=== PATIENT | female | born 1960 | race Caucasian/White ===

== ENCOUNTER 2017-03-13 05:08 | Inpatient (IN) | payer MEDICAID ==
--- NOTE | 2017-03-13 05:18 | ED PDOC ---
Arrival/HPI - General Time Seen by Provider: 03/13/17 05:14 Historian: Patient, EMS - History of Present Illness Narrative History of Present Illness (Text): 03/13/17 05:15 Nasra Mcduffie is a 57 year old female who presents to the Emergency department transferred from [facility] for depression and suicidal ideation tonight. Patient was medically cleared earlier and accepted for psychiatric admission here . Patient denies any fever, chills, chest pain, shortness of breath, nausea, vomiting, diarrhea, urinary symptoms, back pain, neck pain, headache, dizziness, or any other complaints. Symptom Onset: Gradual Symptom Course: Unchanged Activities at Onset: Light Context: Other (Transferred from [facility]) Past Medical History - Provider Review Nursing Documentation Reviewed: Yes Family/Social History - Physician Review Nursing Documentation Reviewed: Yes Family/Social History: Unknown Family HX Allergies/Home Meds Allergies/Adverse Reactions: Allergies Sulfa (Sulfonamide Antibiotics) Allergy (Verified 03/13/17 05:20) RASH Review of Systems - Physician Review All systems were reviewed & negative as marked: Yes - Review of Systems Constitutional: Normal. absent: Fevers Eyes: Normal ENT: Normal Respiratory: Normal. absent: SOB, Cough Cardiovascular: Normal. absent: Chest Pain Gastrointestinal: Normal. absent: Abdominal Pain, Diarrhea, Nausea, Vomiting Genitourinary Female: Normal. absent: Dysuria, Frequency, Hematuria, Urine Output Changes Musculoskeletal: Normal. absent: Back Pain, Neck Pain Skin: Normal. absent: Rash Neurological: Normal. absent: Headache, Dizziness Endocrine: Normal Hemo/Lymphatic: Normal Psychiatric: Depression, Suicidal Ideation Physical Exam Vital Signs Reviewed: Yes Vital Signs Temp Pulse Resp BP Pulse Ox 03/13/17 05:34 98.8 F 82 19 143/82 99 Temperature: Afebrile Blood Pressure: Normal Pulse: Regular Respiratory Rate: Normal Appearance: Positive for: Well-Appearing, Non-Toxic, Comfortable Pain Distress: None Mental Status: Positive for: Alert and Oriented X 3 - Systems Exam Head: Present: Atraumatic, Normocephalic Pupils: Present: PERRL Extroacular Muscles: Present: EOMI Conjunctiva: Present: Normal Mouth: Present: Moist Mucous Membranes Neck: Present: Normal Range of Motion Respiratory/Chest: Present: Clear to Auscultation, Good Air Exchange. No: Respiratory Distress, Accessory Muscle Use Cardiovascular: Present: Regular Rate and Rhythm, Normal S1, S2. No: Murmurs Abdomen: Present: Normal Bowel Sounds. No: Tenderness, Distention, Peritoneal Signs Back: Present: Normal Inspection Upper Extremity: Present: Normal Inspection. No: Cyanosis, Edema Lower Extremity: Present: Normal Inspection. No: Edema Neurological: Present: GCS=15, CN II-XII Intact, Speech Normal Skin: Present: Warm, Dry, Normal Color. No: Rashes Psychiatric: Present: Alert, Oriented x 3, Normal Insight, Normal Concentration Medical Decision Making ED Course and Treatment: 03/13/17 05:15 Impression: 57 year old female transferred from [facility] for depression and suicidal ideation. Plan: -- Admission to [facility] -- Disposition Progress Notes: Patient was medically cleared and accepted for psychiatric admission at previous institution by psychiatrist detonator assembler. [facility] Glez's service. Pt agreeable with plan. - Scribe Statement The provider has reviewed the documentation as recorded by the Fanny Bartlett Provider Scribe Attestation: All medical record entries made by the Scribe were at my direction and personally dictated by me. I have reviewed the chart and agree that the record accurately reflects my personal performance of the history, physical exam, medical decision making, and the department course for this patient. I have also personally directed, reviewed, and agree with the discharge instructions and disposition. Disposition/Present on Arrival - Present on Arrival Any Indicators Present on Arrival: No History of DVT/PE: No History of Uncontrolled Diabetes: No Urinary Catheter: No History of Decub. Ulcer: No History Surgical Site Infection Following: None - Disposition Have Diagnosis and Disposition been Completed?: Yes Diagnosis: Depression, Suicidal ideation Disposition: HOSPITALIZED Disposition Time: 05:40 Patient Plan: Admission Patient Problems: Current Active Problems Problem Status Onset Depression Acute Suicidal ideation Acute Condition: STABLE
[2017-03-13 05:35] VITALS: O2SAT 99
[2017-03-13] MEDS ORDERED: Magnesium Hydroxide Susp 30 ml UD PO PRN (08:03)
[2017-03-13] MEDS ORDERED: Alum-Mag Hydrox-Simethicone Susp (30 mL) PO PRN (08:03)
--- NOTE | 2017-03-13 16:17 | PCM.PSYCH ---
Initial Psychiatric Evaluation - Initial Psychiatric Evaluation Type of Admission: Voluntary Legal Status: Capacity (pt has capacity to sign consent for treatment) Chief Complaint (in patient's own words): "I was feeling very anxious, I'm very lonely, I had bad thoughts you know, I came to the hospital twice, my primary care physician was prescribing me so many medications, I did not know what to do" Patient's Reaction to Hospitalization: Patient was transferred from [facility] for evaluation and stabilization of worsening of depression, suicidal ideation, worsening of anxiety. History of Present Illness and Precipitating Events: shortly patient is 57 year old female from the [place] was transferred from [facility] where she was brought in by EMS for evaluation of worsening of depression and suicidal ideation with no intent or plan to kill herself (pt called 911 herself), worsening of anxiety for the past four days, pt was not able to contract for safety, was on multiple psychotropic medications, needs further evaluation and stabilization and meds adjustment. Pt was seen and examined today at the treatment team meeting, together with nurse clinical quality manager . pt presented with acceptable personal hygiene, acceptable ADLs. patient presented to be tearful, anxious, seems to be poor and unreliable historian, obviously has difficult to concentrate and history is lack of details. Patient reported that she does not remember the medication what she is taking but remembered some of the medications were started recently. Nurse practitioner called to the patient's pharmacy [phone], following medications were confirmed Cymbalta 60 mg daily prescribed by Dr. Méndez Zoloft 50 mg by mouth daily prescribed by Trazodone 50 mg at the nighttime by Dr. Bliss Nortriptyline 50 mg at the nighttime by Dr. Fowler pt said that nortryptilline was started about 6months ago and she did not see any differences. patient also reported that she was on lorazepam, but did not take that medication because her doctor is on vacation. Patient reported that for past 4 days patient was feeling hopeless, depressed, had suicidal ideation but no intent or plan to kill herself, patient would not stay home by herself because she couldn't contract for safety, patient denied hearing voices or seeing things, patient reported that she constantly feels very anxious, not able to sleep, reported to have poor appetite. Patient said that she feels very lonely and her grown children as well as family are not visited her very often. Patient reported that she feels very depressed about that fact. no manic symptoms elicited Patient denied history of being abused Patient denied using any drugs, denied smoking. Patient reported that she had history of 3 previous suicidal attempts about 20 years ago by overdosing on pills. Patient reported that she is currently under Dr. Bobby mayen at [facility]. Patient also reported that she has therapist, but was not seeing him on a regular basis because she was feeling better. multiple medical issues including fibromyalgia for what she was taking nortriptyllin. as per [facility] report pt was in ED 5 times for multiple somatic complaints. labs reviewed, WNL. patient was educated about treatment plan, patient is willing to take increased dose of Cymbalta, Zoloft will be discontinued, trazodone will be discontinued, restricted in will be discontinued Lab Results 03/13/17 11:29: POC Glucose (mg/dL) 129 H Vital Signs Temp Pulse Resp BP Pulse Ox 03/13/17 09:48 16 03/13/17 06:51 97.7 F 80 19 125/81 03/13/17 05:34 98.8 F 82 19 143/82 99 Current Medications: Active Medications Generic Name Dose Route Start Last Admin Trade Name Freq PRN Reason Stop Dose Admin Acetaminophen 650 mg 03/13/17 08:03 Tylenol 325mg Tab PO Q4 PRN Pain, Mild (1-3) Al Hydrox/Mg Hydrox/Simethicone 30 ml 03/13/17 08:03 Maalox Plus 30 Ml PO DAILY PRN Upset Stomach Magnesium Hydroxide 30 ml 03/13/17 08:03 Milk Of Magnesia PO DAILY PRN Constipation Past Psychiatric History - Past Psychiatric History Previous Treatment History: Inpatient Prior Professional Help: see HPI Prior Psychiatric Treatment: see HPI At what hospital: see HPI Duration: see HPI Nature of Treatment: see HPI Explanation of prior treatment: see HPI History of Abuse: denied History of ETOH/Drug Use: denied History of Family Illness: strong family history of depression and anxiety, patient denied family history of suicidal attempts. Pertinent Medical Hx (Current Medical&Sleep Prob, Allergies): Allergies Allergy/AdvReac Type Severity Reaction Status Date / Time Sulfa (Sulfonamide Allergy RASH Verified 03/13/17 06:49 Antibiotics) seafood Allergy RASH Uncoded 03/13/17 06:49 see HPI Review of Systems - Review of Systems Systems not reviewed;Unavailable: Acuity of Condition - EENT Eyes: As Per HPI Ears: As Per HPI Nose/Mouth/Throat: As Per HPI - Breasts Breasts: As Per HPI - Cardiovascular Cardiovascular: As Per HPI - Respiratory Respiratory: As Per HPI - Gastrointestinal Gastrointestinal: As Per HPI - Genitourinary Genitourinary: As Per HPI - Reproductive: Female Reproductive:Female: As Per HPI - Menstruation Menstruation: As Per HPI - Musculoskeletal Musculoskeletal: As Par HPI - Integumentary Integumentary: As Per HPI - Neurological Neurological: As Per HPI - Psychiatric Psychiatric: As Per HPI - Endocrine Endocrine: As Per HPI - Hematologic/Lymphatic Hematologic: As Per HPI Mental Status Examination - Personal Presentation Personal Presentation: Looks older than stated age - Affect Affect: Constricted, Flat - Motor Activity Motor Activity: Calm (but very anxious\\) - Reliability in Providing Information Reliability in Providing Information: Poor, due to altered mood, Poor, due to cognitve impairment - Speech Speech: Tangential - Mood Mood: Depressed, Anxious - Formal Thought Process Formal Thought Process: No Impairment - Obsessions/Compulsions Obsessions: None Compulsions: None - Cognitive Functions Orientation: Person, Place, Situation Sensorium: Alert Attention/Concentration: Easily distracted Abstract Thinking: [place] Estimate of Intelligence: Below average Judgement: Intact, as evidence by: Insight regarding need for hospitalization - Risk Risk: Suicidal, Diminished functioning - Strength & Assets Inventory Strength & Assets Inventory: Spiritual affiliations, Cooperative - Limitations Limitations: Living alone DSM 5 DX - DSM 5 DSM 5 Diagnosis: as per history major depressive disorder, severe, no psychosis Generalized anxiety disorder Fibromyalgia - Recommended/Plan of Treatment Treatment Recommendations and Plan of Treatment: Milieu/structure/supportive therapy Medical consult appreciated, see medical team note for more detailed info consultation for discharge plan and social issues Med management Cymbalta was increased to 40 mg twice a day, with a plan to increase that further with depression, anxiety, fibromyalgia, diabetes neuropathy Nortriptyline will be discontinued Ativan as needed Trazodone will be discontinued Remeron 15 mg at the nighttime for depression and insomnia Medical consultation appreciated Family involvement Follow up on labs Will monitor closely evaluation for d/c planning Pt was educated about risk/benefits and alternatives of medications, coping strategies (safety plan, suicide prevention), relapse prevention, importance of follow up with psychiatrist and therapist, stay away from drugs/alcohol/smoking Projected ELOS: 7 days Prognosis: guarded Discharge Plan and Discharge Criteria: Pt will be not depressed or manic, will be more hopeful, will be not psychotic or anxious, will be not having thoughts of harming self or others, will be tolerating medications well, will not have major side effects, will be able to function, will not pose threat to self or others. - Smoking Cessation Smoking Cessation Initiated: No Reason for not providing: patient denied smoking
[2017-03-13] MEDS: Metoprolol Succinate 50 mg XL Tab PO SCH (16:36)
[2017-03-14 07:33] LABS: FREE T4 1.13 ng/dL (0.78-2.19)
[2017-03-14 08:02] LABS: HEMOGLOBIN 13.6 g/dL (12.0-16.0); MEAN CELL VOLUME 88.7 fl (80.0-105.0); MEAN CORPUSCULAR HGB CONC 33.8 g/dl (31.0-37.0); MEAN PLATELET VOLUME 9.2 fl (7.0-11.0); RBC 4.53 10^6/uL (3.5-6.1); WHITE BLOOD COUNT 6.9 10^3/ul (4.5-11.0)
[2017-03-14 08:10] LABS: GLUCOSE,FASTING 126 mg/dL (65-110); HDL CHOLESTEROL 77 mg/dL (29-60)
[2017-03-14 08:17] LABS: LDL CHOLESTEROL 84 mg/dL (0-129)
[2017-03-14 08:18] LABS: ALB/GLOB RATIO 1.4 (1.1-1.8); ALBUMIN 4.8 g/dL (3.0-4.8); ALT/SGPT 25 U/L (7-56); AST/SGOT 33 U/L (14-36); BLOOD UREA NITROGEN 11 mg/dL (7-21); GFR AFRICAN-AMERICAN > 60; GFR NON-AFRICAN AMERICAN > 60
[2017-03-14] MEDS: Metoprolol Succinate 50 mg XL Tab PO SCH (09:33)
[2017-03-14] MEDS ORDERED: Apap-Butalbital-Caffeine 325-50-40mg Tab PO PRN (11:15)
--- NOTE | 2017-03-14 12:26 | CP.PCM.CON ---
<Maurizio Naqvi - Last Filed: 03/14/17 12:21> History of Present Illness - History of Present Illness History of Present Illness: Medicine Consult Note CC: suicidal ideation HPI: Pt is a 57 yo F with PMH of DM, HLD, HTN, Fibromyalgia, Anxiety, and Depression who presented with anxiety and depression. She states that she was feeling extremely anxious and depressed for the last 5 days. She went to her PMD , Ryan Mays, and he changed her medications which made her feel more anxious and depressed. She has had recurrent episodes of Major Depressive Disorder and Anxiety Attacks. She is uncertain which medication she was given that provoked her symptoms. She admits to occasionally wanting to harm herself but does not have a plan. She denies any current suicidal or homicidal ideations. Pt states that she has had multiple psychiatric admissions in the past due to suicidal ideation with a plan. Pt denied CP, SOB, nausea, vomiting, diarrhea, abdominal pain, fever, chills, REEDER, or dizziness. PMH: DM, HCH, HTN, Fibromyalgia, Anxiety, and Depression PSH:tonsillectomy, removal of cystic mass from left breast x 2, bladder incontinence, and uterine fibroma removal. All: Sulfa FHx: Alzeimher's disease SH: Denied tobacco, EtOH, and illicit drug use PMD: Ryan Kelly Review of Systems - Review of Systems Review of Systems: 12 point ROS reviewed and is negative other than what is stated in HPI. Past Patient History - Past Social History Smoking Status: Unknown If Ever Smoked - CARDIAC Hx Hypercholesterolemia: Yes - PULMONARY Hx Respiratory Disorders: No - NEUROLOGICAL Hx Neurological Disorder: No - HEENT Hx HEENT Problems: No - RENAL Hx Chronic Kidney Disease: No - ENDOCRINE/METABOLIC Hx Endocrine Disorders: No - HEMATOLOGICAL/ONCOLOGICAL Hx Blood Disorders: No - INTEGUMENTARY Hx Dermatological Problems: No - GASTROINTESTINAL Hx Gastrointestinal Disorders: No - GENITOURINARY/GYNECOLOGICAL Hx Genitourinary Disorders: No - PSYCHIATRIC Hx Anxiety: Yes Hx Depression: Yes Hx Substance Use: No - SURGICAL HISTORY Hx Surgeries: No Meds Allergies/Adverse Reactions: Allergies Allergy/AdvReac Type Severity Reaction Status Date / Time Sulfa (Sulfonamide Allergy RASH Verified 03/13/17 09:45 Antibiotics) seafood Allergy RASH Uncoded 03/13/17 09:45 - Medications Medications: Current Medications Acetaminophen (Tylenol 325mg Tab) 650 mg PO Q4 PRN PRN Reason: Pain, Mild (1-3) Acetaminophen/Butalbital/Caffeine (Fioricet) 1 tab PO TID PRN PRN Reason: Headache Al Hydrox/Mg Hydrox/Simethicone (Maalox Plus 30 Ml) 30 ml PO DAILY PRN PRN Reason: Upset Stomach Amlodipine Besylate (Norvasc) 10 mg PO DAILY [facility] Last Admin: 03/14/17 09:33 Dose: 10 mg Aspirin (Ecotrin) 81 mg PO DAILY [facility] Last Admin: 03/14/17 09:34 Dose: 81 mg Atorvastatin Calcium (Lipitor) 10 mg PO HS [facility] Last Admin: 03/13/17 21:27 Dose: 10 mg Duloxetine HCl (Cymbalta) 40 mg PO BID [facility] Last Admin: 03/14/17 09:33 Dose: 40 mg Lisinopril (Zestril) 20 mg PO DAILY [facility] Last Admin: 03/14/17 09:31 Dose: 20 mg Lorazepam (Ativan) 0.5 mg PO BID [facility] PRN Reason: Protocol Last Admin: 03/14/17 09:33 Dose: 0.5 mg Lorazepam (Ativan) 0.5 mg PO HS PRN; Protocol PRN Reason: Anxiety Last Admin: 03/14/17 05:06 Dose: 0.5 mg Magnesium Hydroxide (Milk Of Magnesia) 30 ml PO DAILY PRN PRN Reason: Constipation Memantine (Namenda) 10 mg PO BID [facility] Metformin HCl (Glucophage) 500 mg PO BID [facility] Last Admin: 03/14/17 09:32 Dose: 500 mg Metoprolol Succinate (Toprol Xl) 50 mg PO DAILY [facility] Last Admin: 03/14/17 09:33 Dose: 50 mg Mirtazapine (Remeron) 15 mg PO HS PRN PRN Reason: Insomnia Last Admin: 03/13/17 21:28 Dose: 15 mg Pantoprazole Sodium (Protonix Ec Tab) 40 mg PO DAILY [facility] Physical Exam - Constitutional Appears: No Acute Distress - Head Exam Head Exam: NORMAL INSPECTION - Eye Exam Eye Exam: Normal appearance - ENT Exam ENT Exam: Normal Exam - Neck Exam Neck exam: Positive for: Normal Inspection - Respiratory Exam Respiratory Exam: Clear to Auscultation Bilateral. absent: Rales, Rhonchi, Wheezes - Cardiovascular Exam Cardiovascular Exam: RRR, +S1, +S2. absent: Diastolic murmur, Gallop, Rubs, Systolic Murmur - GI/Abdominal Exam GI & Abdominal Exam: Soft. absent: Distended, Guarding, Rebound, Tenderness - Extremities Exam Extremities exam: Positive for: normal inspection - Back Exam Back exam: NORMAL INSPECTION - Neurological Exam Neurological exam: Alert, Oriented x3 - Psychiatric Exam Psychiatric exam: Normal Affect, Normal Mood - Skin Skin Exam: Dry, Intact, Normal Color, Warm Results - Vital Signs Recent Vital Signs: Last Vital Signs Temp 98.6 F 03/14/17 07:18 Pulse 100 H 03/14/17 09:33 Resp 20 03/14/17 07:18 BP 150/105 H 03/14/17 09:33 Pulse Ox 99 03/13/17 05:34 - Labs Result Diagrams: 03/14/17 06:30 03/14/17 06:30 Labs: Laboratory Results - last 24 hr 03/13/17 03/13/17 03/14/17 16:12 21:50 06:30 WBC RBC Hgb Hct MCV MCH MCHC RDW Plt Count MPV Sodium Potassium Chloride Carbon Dioxide Anion Gap BUN Creatinine Est GFR ( Amer) Est GFR (Non-Af Amer) POC Glucose (mg/dL) 96 97 Random Glucose Fasting Glucose 126 H Calcium Total Bilirubin AST ALT Alkaline Phosphatase Total Protein Albumin Globulin Albumin/Globulin Ratio Triglycerides 57 Cholesterol 196 LDL Cholesterol Direct 84 HDL Cholesterol 77 H Free T4 TSH 3rd Generation 03/14/17 03/14/17 03/14/17 06:30 06:30 06:30 WBC 6.9 RBC 4.53 Hgb 13.6 Hct 40.2 MCV 88.7 MCH 30.0 MCHC 33.8 RDW 14.0 Plt Count 244 MPV 9.2 Sodium 145 Potassium 4.2 Chloride 103 Carbon Dioxide 29 Anion Gap 17 BUN 11 Creatinine 0.7 Est GFR ( Amer) > 60 Est GFR (Non-Af Amer) > 60 POC Glucose (mg/dL) Random Glucose 126 H Fasting Glucose Calcium 10.0 Total Bilirubin 0.5 AST 33 ALT 25 Alkaline Phosphatase 112 Total Protein 8.2 Albumin 4.8 Globulin 3.4 Albumin/Globulin Ratio 1.4 Triglycerides Cholesterol LDL Cholesterol Direct HDL Cholesterol Free T4 1.13 TSH 3rd Generation 1.73 01/03/18 01/03/18 07:06 11:26 WBC RBC Hgb Hct MCV MCH MCHC RDW Plt Count MPV Sodium Potassium Chloride Carbon Dioxide Anion Gap BUN Creatinine Est GFR ( Amer) Est GFR (Non-Af Amer) POC Glucose (mg/dL) 133 H 71 Random Glucose Fasting Glucose Calcium Total Bilirubin AST ALT Alkaline Phosphatase Total Protein Albumin Globulin Albumin/Globulin Ratio Triglycerides Cholesterol LDL Cholesterol Direct HDL Cholesterol Free T4 TSH 3rd Generation Assessment & Plan - Assessment and Plan (Free Text) Assessment: 57 yo F with PMH of DM, HCH, HTN, Fibromyalgia, Anxiety, and Depression admitted for evaluation and treatment for suicidal ideation. Plan: 1. Suicidal ideation - Mangement per psych 2. Depression/Anxiety - Management per psych 3. HTN - Cont home meds: lisinopril, norvasc, metoprolol 4. HLD - Cont home med: pravastatin 5. H/o Migraines - Cont home med: fiorocet prn 6. Cognitive decline - Cont home med: namenda 7. DM2 - Cont home med: metoformin GI PPx - Omeprazole Dispo: Patient is medically clear. Will sign off. Please reconsult if needed. Pt seen and discussed in detail with Dr. Rutledge. Liam Naqvi, PGY1 <Krys Rutledge - Last Filed: 03/14/17 15:14> Meds - Medications Medications: Current Medications Acetaminophen (Tylenol 325mg Tab) 650 mg PO Q4 PRN PRN Reason: Pain, Mild (1-3) Acetaminophen/Butalbital/Caffeine (Fioricet) 1 tab PO TID PRN PRN Reason: Headache Al Hydrox/Mg Hydrox/Simethicone (Maalox Plus 30 Ml) 30 ml PO DAILY PRN PRN Reason: Upset Stomach Amlodipine Besylate (Norvasc) 10 mg PO DAILY [facility] Last Admin: 03/14/17 09:33 Dose: 10 mg Aspirin (Ecotrin) 81 mg PO DAILY [facility] Last Admin: 03/14/17 09:34 Dose: 81 mg Atorvastatin Calcium (Lipitor) 10 mg PO HS [facility] Last Admin: 03/13/17 21:27 Dose: 10 mg Duloxetine HCl (Cymbalta) 40 mg PO BID [facility] Last Admin: 03/14/17 09:33 Dose: 40 mg Lisinopril (Zestril) 20 mg PO DAILY [facility] Last Admin: 03/14/17 09:31 Dose: 20 mg Lorazepam (Ativan) 0.5 mg PO BID [facility] PRN Reason: Protocol Last Admin: 03/14/17 09:33 Dose: 0.5 mg Lorazepam (Ativan) 0.5 mg PO HS PRN; Protocol PRN Reason: Anxiety Last Admin: 03/14/17 05:06 Dose: 0.5 mg Magnesium Hydroxide (Milk Of Magnesia) 30 ml PO DAILY PRN PRN Reason: Constipation Memantine (Namenda) 10 mg PO BID [facility] Metformin HCl (Glucophage) 500 mg PO BID [facility] Last Admin: 03/14/17 09:32 Dose: 500 mg Metoprolol Succinate (Toprol Xl) 50 mg PO DAILY [facility] Last Admin: 03/14/17 09:33 Dose: 50 mg Mirtazapine (Remeron) 15 mg PO HS PRN PRN Reason: Insomnia Last Admin: 03/13/17 21:28 Dose: 15 mg Pantoprazole Sodium (Protonix Ec Tab) 40 mg PO DAILY [facility] Results - Vital Signs Recent Vital Signs: Last Vital Signs Temp 98.6 F 03/14/17 07:18 Pulse 100 H 03/14/17 09:33 Resp 20 03/14/17 07:18 BP 150/105 H 03/14/17 09:33 Pulse Ox 99 03/13/17 05:34 - Labs Result Diagrams: 03/14/17 06:30 03/14/17 06:30 Labs: Laboratory Results - last 24 hr 03/13/17 03/13/17 03/14/17 16:12 21:50 06:30 WBC RBC Hgb Hct MCV MCH MCHC RDW Plt Count MPV Sodium Potassium Chloride Carbon Dioxide Anion Gap BUN Creatinine Est GFR ( Amer) Est GFR (Non-Af Amer) POC Glucose (mg/dL) 96 97 Random Glucose Fasting Glucose 126 H Calcium Total Bilirubin AST ALT Alkaline Phosphatase Total Protein Albumin Globulin Albumin/Globulin Ratio Triglycerides 57 Cholesterol 196 LDL Cholesterol Direct 84 HDL Cholesterol 77 H Free T4 TSH 3rd Generation 03/14/17 03/14/17 03/14/17 06:30 06:30 06:30 WBC 6.9 RBC 4.53 Hgb 13.6 Hct 40.2 MCV 88.7 MCH 30.0 MCHC 33.8 RDW 14.0 Plt Count 244 MPV 9.2 Sodium 145 Potassium 4.2 Chloride 103 Carbon Dioxide 29 Anion Gap 17 BUN 11 Creatinine 0.7 Est GFR ( Amer) > 60 Est GFR (Non-Af Amer) > 60 POC Glucose (mg/dL) Random Glucose 126 H Fasting Glucose Calcium 10.0 Total Bilirubin 0.5 AST 33 ALT 25 Alkaline Phosphatase 112 Total Protein 8.2 Albumin 4.8 Globulin 3.4 Albumin/Globulin Ratio 1.4 Triglycerides Cholesterol LDL Cholesterol Direct HDL Cholesterol Free T4 1.13 TSH 3rd Generation 1.73 03/14/17 03/14/17 07:06 11:26 WBC RBC Hgb Hct MCV MCH MCHC RDW Plt Count MPV Sodium Potassium Chloride Carbon Dioxide Anion Gap BUN Creatinine Est GFR ( Amer) Est GFR (Non-Af Amer) POC Glucose (mg/dL) 133 H 71 Random Glucose Fasting Glucose Calcium Total Bilirubin AST ALT Alkaline Phosphatase Total Protein Albumin Globulin Albumin/Globulin Ratio Triglycerides Cholesterol LDL Cholesterol Direct HDL Cholesterol Free T4 TSH 3rd Generation Attending/Attestation - Attestation I have personally seen and examined this patient.: Yes I have fully participated in the care of the patient.: Yes I have reviewed all pertinent clinical information: Yes Notes (Text): 03/14/17 15:03 Patient was seen and examined with director medical affairs. Agreed with assessment and plan. 7 yo F with PMH of DM, HLD, HTN, Fibromyalgia, Anxiety, and Depression who presented with depression and suicidal ideation. Blood sugar is controlled with home metformin. Blood pressure is better controlled with home medication. Patient has early cognitive dysfunction, will continue home Nematidine. There is no active medical issue at this time, we will sign off. Please call us back if any question. Management plan was discussed in detail. Education was provided. 03/14/17 15:14
--- NOTE | 2017-03-14 14:59 | PCM.BM ---
<Julia Kelly - Last Filed: 03/14/17 14:55> Treatment Plan Problems - Problems identified on initial assessmt hopeless/helpless Date Initiated: 03/14/17 Time Initiated: 13:00 Assessment reference: NA Status: Active Priority: 1 ineffective coping Date Initiated: 03/14/17 Time Initiated: 13:00 Assessment reference: NA Status: Active Priority: 2 anxiety Date Initiated: 03/14/17 Time Initiated: 13:00 Assessment reference: NA Status: Active Priority: 3 Treatment assets and liabiliti Patient Assests: ADL independent, negotiates basic needs, cognitively intact Patient Liabilities: live alone, poor support system, language/speech - Milieu Protocol Maintain good personal hygiene: daily Encourage regular showers, daily Remind patient to perform daily oral care Maintain personal safety: every shift Educate patient to report safety concerns to staff, every shift Monitor environment for contraband/sharps Medication safety: Monitor for expected outcome, potential side effects: every shift, Assess barriers to learning: every shift, Assess readiness for medication education: every shift Milieu Narrative: Milieu/structure/supportive therapy Medical consult appreciated, see medical team note for more detailed info SW consultation for discharge plan and social issues Med management Cymbalta was increased to 40 mg twice a day, with a plan to increase that further with depression, anxiety, fibromyalgia, diabetes neuropathy Nortriptyline will be discontinued Ativan as needed Trazodone will be discontinued Remeron 15 mg at the nighttime for depression and insomnia Medical consultation appreciated Family involvement Follow up on labs Will monitor closely SW evaluation for d/c planning Pt was educated about risk/benefits and alternatives of medications, coping strategies (safety plan, suicide prevention), relapse prevention, importance of follow up with psychiatrist and therapist, stay away from drugs/alcohol/smoking Family Contact Family involvement: Family/SO is involved Discharge/Continuing Care - Education Needs Education Needs: Patient Medication, Patient Diagnosis/Disease Process, Patient Coping Skills, Patient Community resources, Patient Activities of Daily Living, Patient Nutrition, Patient Health Practices/Safety, Patient Aftercare Safety Plan - Discharge Discharge Criteria: Tolerates medication w/o severe side effects, Free of Suicidal thoughts, Normal sleep pattern, Ability to care for self, Reduction of target symptoms Discharge to:: Home - Treatment Team Participation Patient/Family/SO Statement: Milieu/structure/supportive therapy Medical consult appreciated, see medical team note for more detailed info SW consultation for discharge plan and social issues Med management Cymbalta was increased to 40 mg twice a day, with a plan to increase that further with depression, anxiety, fibromyalgia, diabetes neuropathy Nortriptyline will be discontinued Ativan as needed Trazodone will be discontinued Remeron 15 mg at the nighttime for depression and insomnia Medical consultation appreciated Family involvement Follow up on labs Will monitor closely SW evaluation for d/c planning Pt was educated about risk/benefits and alternatives of medications, coping strategies (safety plan, suicide prevention), relapse prevention, importance of follow up with psychiatrist and therapist, stay away from drugs/alcohol/smoking <Eunice Cabrera - Last Filed: 03/19/17 10:40> Family Contact Family contact: Patient agrees to contact Family contact name: Swetha Castillo(daughter) Family contacted how many times per week?: 2 - Outside Agency [facility] [employer] [facility] Care involvment: Not involved <Becca Chu - Last Filed: 03/21/17 15:16>
--- NOTE | 2017-03-14 17:22 | PCM.PYCHPN ---
Psychiatric Progress Note - Psychiatric Progress Note Patient seen today, length of contact: 30min Patient Chief Complaint: "I feel little bit better today, I slept better" Problems Identified/Issues Discussed: Suicide/ homicide prevention, past psychiatric h/o, current psychiatric symptoms , medical problems, risk/benefits and alternatives of medications, medications compliance, coping strategies, substance abuse h/o, relapse prevention, importance of follow up with psychiatrist and therapist, discharge plan. Medical Problems: see HPI fibromyalgia Diagnostic Results: 03/14/17 06:30 03/14/17 06:30 Lab Results 03/14/17 16:37: POC Glucose (mg/dL) 104 03/14/17 11:26: POC Glucose (mg/dL) 71 03/14/17 07:06: POC Glucose (mg/dL) 133 H 03/14/17 06:30: Sodium 145, Potassium 4.2, Chloride 103, Carbon Dioxide 29, Anion Gap 17, BUN 11, Creatinine 0.7, Est GFR ( Amer) > 60, Est GFR (Non- Af Amer) > 60, Random Glucose 126 H, Calcium 10.0, Total Bilirubin 0.5, AST 33, ALT 25, Alkaline Phosphatase 112, Total Protein 8.2, Albumin 4.8, Globulin 3.4, Albumin/Globulin Ratio 1.4 03/14/17 06:30: WBC 6.9, RBC 4.53, Hgb 13.6, Hct 40.2, MCV 88.7, MCH 30.0, MCHC 33.8, RDW 14.0, Plt Count 244, MPV 9.2 03/14/17 06:30: RPR Nonreactive 03/14/17 06:30: Free T4 1.13, TSH 3rd Generation 1.73 03/14/17 06:30: Fasting Glucose 126 H, Triglycerides 57, Cholesterol 196, LDL Cholesterol Direct 84, HDL Cholesterol 77 H 03/13/17 21:50: POC Glucose (mg/dL) 97 03/13/17 16:12: POC Glucose (mg/dL) 96 03/13/17 11:29: POC Glucose (mg/dL) 129 H Vital Signs Temp Pulse Resp BP Pulse Ox 03/14/17 09:33 100 H 150/105 H 03/14/17 09:31 100 H 152/105 H 03/14/17 07:18 98.6 F 100 H 20 03/13/17 16:36 153/103 H 03/13/17 16:00 88 157/103 H 03/13/17 09:48 16 03/13/17 06:51 97.7 F 80 19 125/81 03/13/17 05:34 98.8 F 82 19 143/82 99 DSM 5 Symptoms Update: shortly patient is 57 year old female from the [place] was transferred from [facility] where she was brought in by EMS for evaluation of worsening of depression and suicidal ideation with no intent or plan to kill herself (pt called 911 herself), worsening of anxiety for the past four days, pt was not able to contract for safety, was on multiple psychotropic medications, needs further evaluation and stabilization and meds adjustment. Pt was seen and examined today in the hallway, later on at the treatment team meeting, pt presented to be less anxious, reported that she likes the combination of meds she is currently on, pt said she had a good night sleep. affect was less anxious, pt was smiling occasionally. as per staff pt started to go to the groups, started to socialize with other patients more. no manic symptoms elicited no side effects were observed or reported, aims 0, no EPS. DSM 5 Diagnosis: as per history major depressive disorder, severe, no psychosis Generalized anxiety disorder Fibromyalgia Medication Change: Yes (cymbalta increased, Remeron added, Ativan started) Medical Record Reviewed: Yes Consults ordered or reviewed: medical consult appreciated Mental Status Examination - Cognitive Function Orientation: Person, Place, Situation Memory: Intact Attention: Poor Concentration: Poor Association: Loose Fund of Knowledge: Poor - Mood Mood: Depressed ("I feel little bit better today"), Anxious - Affect Affect: Constricted (but more reactive), Flat - Speech Speech: Appropriate - Formal Thought Process Formal Thought Process: No Impairment - Suicidal Ideation Suicidal Ideation: No - Homicidal Ideation Homicidal Ideation: No Goal/Treatment Plan - Goal/Treatment Plan Need for Continued Stay: Remain at risks for inpatient hospitalization, Severe depression anxiety, Discharge may exacerbated symptoms, Severe functional impairment Progress Toward Problem(s) and Goals/Treatment Plan: Milieu/structure/supportive therapy Medical consult appreciated, see medical team note for more detailed info SW consultation for discharge plan and social issues Med management Cymbalta was increased to 40 mg twice a day, with a plan to increase that further with depression, anxiety, fibromyalgia, diabetes neuropathy Nortriptyline as discontinued, patient tolerated that well Ativan as needed 0.5 mg twice a day Trazodone was discontinued, patient tolerated that well Remeron 15 mg at the nighttime for depression and insomnia Medical consultation appreciated Family involvement Follow up on labs Will monitor closely SW evaluation for d/c planning Pt was educated about risk/benefits and alternatives of medications, coping strategies (safety plan, suicide prevention), relapse prevention, importance of follow up with psychiatrist and therapist, stay away from drugs/alcohol/smoking Estimated Date of D/C: 03/19/17 (we'll monitor closely)
[2017-03-15] MEDS: Metoprolol Succinate 50 mg XL Tab PO SCH (09:34)
[2017-03-15] MEDS: Pantoprazole 40 mg EC Tab PO SCH (09:37)
--- NOTE | 2017-03-15 15:14 | PCM.PYCHPN ---
Psychiatric Progress Note - Psychiatric Progress Note Patient seen today, length of contact: 30min Patient Chief Complaint: "I feel less anxious" Problems Identified/Issues Discussed: Suicide/ homicide prevention, past psychiatric h/o, current psychiatric symptoms , medical problems, risk/benefits and alternatives of medications, medications compliance, coping strategies, substance abuse h/o, relapse prevention, importance of follow up with psychiatrist and therapist, discharge plan. Medical Problems: see HPI fibromyalgia Diagnostic Results: 03/14/17 06:30 03/14/17 06:30 Lab Results 03/14/17 16:37: POC Glucose (mg/dL) 104 03/14/17 11:26: POC Glucose (mg/dL) 71 03/14/17 07:06: POC Glucose (mg/dL) 133 H 03/14/17 06:30: Sodium 145, Potassium 4.2, Chloride 103, Carbon Dioxide 29, Anion Gap 17, BUN 11, Creatinine 0.7, Est GFR ( Amer) > 60, Est GFR (Non- Af Amer) > 60, Random Glucose 126 H, Calcium 10.0, Total Bilirubin 0.5, AST 33, ALT 25, Alkaline Phosphatase 112, Total Protein 8.2, Albumin 4.8, Globulin 3.4, Albumin/Globulin Ratio 1.4 03/14/17 06:30: WBC 6.9, RBC 4.53, Hgb 13.6, Hct 40.2, MCV 88.7, MCH 30.0, MCHC 33.8, RDW 14.0, Plt Count 244, MPV 9.2 03/14/17 06:30: RPR Nonreactive 03/14/17 06:30: Free T4 1.13, TSH 3rd Generation 1.73 03/14/17 06:30: Fasting Glucose 126 H, Triglycerides 57, Cholesterol 196, LDL Cholesterol Direct 84, HDL Cholesterol 77 H 03/13/17 21:50: POC Glucose (mg/dL) 97 03/13/17 16:12: POC Glucose (mg/dL) 96 03/13/17 11:29: POC Glucose (mg/dL) 129 H Vital Signs Temp Pulse Resp BP Pulse Ox 03/14/17 09:33 100 H 150/105 H 03/14/17 09:31 100 H 152/105 H 03/14/17 07:18 98.6 F 100 H 20 03/13/17 16:36 153/103 H 03/13/17 16:00 88 157/103 H 03/13/17 09:48 16 03/13/17 06:51 97.7 F 80 19 125/81 03/13/17 05:34 98.8 F 82 19 143/82 99 Temp Pulse Resp BP Pulse Ox 97.7 F 82 20 138/99 H 99 03/15/17 07:17 03/15/17 09:36 03/15/17 07:17 03/15/17 09:36 03/13/17 05:34 DSM 5 Symptoms Update: shortly patient is 57 year old female from the [place] was transferred from [facility] where she was brought in by EMS for evaluation of worsening of depression and suicidal ideation with no intent or plan to kill herself (pt called 911 herself), worsening of anxiety for the past four days, pt was not able to contract for safety, was on multiple psychotropic medications, needs further evaluation and stabilization and meds adjustment. Pt was seen and examined today at the [facility] area with the nurse manager regional . pt said she feels better, anxiety is improving, pt is willing to maximize the dose of Cymbalta to 120mg po daily for depression/anxiety/fibromyalgia. Pt said that her anxiety is improving, pt still has interrupted sleep, but "it is little better than before". pt has transient feeling of hopelessness, but denied thoughts of harming self or others. as per staff pt started to go to the groups, started to socialize with other patients more. no manic symptoms elicited no side effects were observed or reported, aims 0, no EPS. DSM 5 Diagnosis: as per history major depressive disorder, severe, no psychosis Generalized anxiety disorder Fibromyalgia Medication Change: Yes (cymbalta increased) Medical Record Reviewed: Yes Consults ordered or reviewed: medical consult appreciated Mental Status Examination - Cognitive Function Orientation: Person, Place, Situation Memory: Intact Attention: Poor (impriving) Concentration: Poor (improving) Association: Loose (improving) Fund of Knowledge: Poor - Mood Mood: Depressed ("I feel little bit better today"), Anxious - Affect Affect: Constricted (but more reactive), Flat - Speech Speech: Appropriate - Formal Thought Process Formal Thought Process: No Impairment - Suicidal Ideation Suicidal Ideation: No - Homicidal Ideation Homicidal Ideation: No Goal/Treatment Plan - Goal/Treatment Plan Need for Continued Stay: Remain at risks for inpatient hospitalization, Severe depression anxiety, Discharge may exacerbated symptoms, Severe functional impairment Progress Toward Problem(s) and Goals/Treatment Plan: Milieu/structure/supportive therapy Medical consult appreciated, see medical team note for more detailed info consultation for discharge plan and social issues Med management Cymbalta was increased to 60 mg twice a day for mdd, anxiety, fibromyalgia Nortriptyline was discontinued, patient tolerated that well Ativan as needed 0.5 mg twice a day Trazodone was discontinued, patient tolerated that well Remeron 15 mg at the nighttime for depression and insomnia Medical consultation appreciated Family involvement Follow up on labs Will monitor closely evaluation for d/c planning Pt was educated about risk/benefits and alternatives of medications, coping strategies (safety plan, suicide prevention), relapse prevention, importance of follow up with psychiatrist and therapist, stay away from drugs/alcohol/smoking Estimated Date of D/C: 03/19/17 (we'll monitor closely)
[2017-03-16] MEDS: Metoprolol Succinate 50 mg XL Tab PO SCH (08:11)
[2017-03-16] MEDS: Pantoprazole 40 mg EC Tab PO SCH (08:13)
--- NOTE | 2017-03-16 10:40 | PCM.PYCHPN ---
Psychiatric Progress Note - Psychiatric Progress Note Patient seen today, length of contact: 25 min Patient Chief Complaint: depressed Problems Identified/Issues Discussed: I reviewed assessment and recent notes. I met with patient at bedside and in the hallway. She is cooperative and oriented to circumstances. Patient reports that she is very depressed and anxious. Indicates she hasn't been sleeping well and this has been making her feel worse. Admits to hopelessness. She doesn't want to or harm herself. Patient is tolerating her medications and denies side effects or any new discomfort or pain. Her affect is notably anxious. Staff notes indicate that patient has been pleasant, compliant with medications and anxious at times. Visible and attending groups. There were no major behavioral issues overnight. Diagnostic Results: as per history Major depressive disorder, severe, no psychosis Generalized anxiety disorder Fibromyalgia Medication Change: Yes (remeron increased) Medical Record Reviewed: Yes Mental Status Examination - Cognitive Function Orientation: Person, Place, Situation Memory: Intact Attention: Poor (impriving) Concentration: Poor (improving) Association: Loose (improving) Fund of Knowledge: Poor - Mood Mood: Depressed ("I feel little bit better today"), Anxious - Affect Affect: Constricted (but more reactive), Flat - Speech Speech: Appropriate - Formal Thought Process Formal Thought Process: No Impairment - Suicidal Ideation Suicidal Ideation: No - Homicidal Ideation Homicidal Ideation: No Goal/Treatment Plan - Goal/Treatment Plan Need for Continued Stay: Remain at risks for inpatient hospitalization, Severe depression anxiety, Discharge may exacerbated symptoms, Severe functional impairment Progress Toward Problem(s) and Goals/Treatment Plan: * c/w current tx and plan * Increase remeron to 30 mg HS for depression * Cymbalta 60 mg po bid for depression * Ativan 0.5 mg po bid for anxiety * Sonata 5 mg po hs for insomnia * No new labs thus far * Vitals reviewed and noted below: Selected Entries 03/15/17 03/15/17 03/15/17 07:17 09:34 09:35 Temperature 97.7 F Pulse Rate 82 82 Respiratory 20 Rate Blood Pressure 138/99 H 138/99 H 138/99 H 03/15/17 03/15/17 09:36 16:00 Temperature Pulse Rate 82 86 Respiratory Rate Blood Pressure 138/99 H 118/77 Estimated Date of D/C: 03/19/17 (we'll monitor closely)
[2017-03-17 08:21] VITALS: RESP 20
[2017-03-17] MEDS: Pantoprazole 40 mg EC Tab PO SCH (08:25)
[2017-03-17] MEDS: Metoprolol Succinate 50 mg XL Tab PO SCH (08:25)
--- NOTE | 2017-03-17 09:09 | PCM.PYCHPN ---
Psychiatric Progress Note - Psychiatric Progress Note Patient seen today, length of contact: 25 min Patient Chief Complaint: depressed Problems Identified/Issues Discussed: I reviewed recent notes and met with patient in the hallway. She is cooperative and oriented to circumstances. Patient reports that she is very depressed and anxious. Indicates she still hasn't been sleeping well and this has been making her feel worse. Admits to hopelessness "nothing makes me happy". She doesn't want to or harm herself. She is very worried about being discharged before she feels ready. Patient is tolerating her medications and denies side effects or any new discomfort or pain. Her affect is notably anxious. Staff notes indicate that patient has been pleasant, compliant with medications and anxious at times. Visible and attending groups. Seen socializing at times. There were no major behavioral issues overnight. Diagnostic Results: as per history Major depressive disorder, severe, no psychosis Generalized anxiety disorder Fibromyalgia Medication Change: Yes (remeron increased, added sonata) Medical Record Reviewed: Yes Mental Status Examination - Cognitive Function Orientation: Person, Place, Situation Memory: Intact Attention: Poor (impriving) Concentration: Poor (improving) Association: Loose (improving) Fund of Knowledge: Poor - Mood Mood: Depressed ("I feel little bit better today"), Anxious - Affect Affect: Constricted (but more reactive), Flat - Speech Speech: Appropriate - Formal Thought Process Formal Thought Process: No Impairment - Suicidal Ideation Suicidal Ideation: No - Homicidal Ideation Homicidal Ideation: No Goal/Treatment Plan - Goal/Treatment Plan Need for Continued Stay: Remain at risks for inpatient hospitalization, Severe depression anxiety, Discharge may exacerbated symptoms, Severe functional impairment Progress Toward Problem(s) and Goals/Treatment Plan: * c/w current tx and plan * Increased remeron to 30 mg HS for depression on 03/16/16 * Cymbalta 60 mg po bid for depression * Ativan 0.5 mg po bid for anxiety * Sonata 10 mg po hs for insomnia on 03/17/16 * No new labs thus far * Vitals reviewed and noted below: 03/16/17 03/16/17 03/16/17 07:26 08:11 08:12 Temperature 97.7 F Pulse Rate 99 H 99 H Respiratory 21 Rate Blood Pressure 149/106 H 149/106 H 149/106 H 03/16/17 16:30 Temperature 97.6 F Pulse Rate 81 Respiratory 16 Rate Blood Pressure 99/68 L Estimated Date of D/C: 03/19/17 (we'll monitor closely)
[2017-03-18] MEDS: Pantoprazole 40 mg EC Tab PO SCH (09:29)
[2017-03-18] MEDS: Metoprolol Succinate 50 mg XL Tab PO SCH (09:29)
--- NOTE | 2017-03-18 09:31 | PCM.PYCHPN ---
Psychiatric Progress Note - Psychiatric Progress Note Patient seen today, length of contact: 25 min Patient Chief Complaint: depressed and anxious Problems Identified/Issues Discussed: I reviewed recent notes and met with patient at bedside. She is cooperative and oriented to circumstances. Patient reports that she is still very depressed and anxious. She did sleep a little better last night. Still endorses anhedonia and hopelessness though her affect is a little calmer and less overwhelmed today ( though still notably anxious). She doesn't want to or harm herself. She is still very worried about being discharged before she feels ready. Patient was educated/reminded about that therapeutic latency of her medications and this seemed to encourage her a little. Patient is tolerating her medications and denies side effects or any new discomfort or pain. Staff notes indicate that patient has been pleasant, and compliant with medications. Complains of depression and anxiety; required extra dose of Ativan 0.5 mg yesterday with good effect. Visible and attending groups. Seen socializing with select peers at times. There were no major behavioral issues over the weekend. Diagnostic Results: as per history Major depressive disorder, severe, no psychosis Generalized anxiety disorder Fibromyalgia Medication Change: Yes (remeron increased, added sonata) Medical Record Reviewed: Yes Mental Status Examination - Cognitive Function Orientation: Person, Place, Situation Memory: Intact Attention: WNL (impriving) Concentration: Poor (improving) Association: Loose (improving) Fund of Knowledge: Poor - Mood Mood: Depressed ("I feel little bit better today"), Anxious - Affect Affect: Constricted (but more reactive), Flat - Speech Speech: Appropriate - Formal Thought Process Formal Thought Process: No Impairment - Suicidal Ideation Suicidal Ideation: No - Homicidal Ideation Homicidal Ideation: No Goal/Treatment Plan - Goal/Treatment Plan Need for Continued Stay: Remain at risks for inpatient hospitalization, Severe depression anxiety, Discharge may exacerbated symptoms, Severe functional impairment Progress Toward Problem(s) and Goals/Treatment Plan: * c/w current tx and plan * Increased remeron to 30 mg HS for depression on 03/16/16 * Cymbalta 60 mg po bid for depression * Ativan 0.5 mg po bid for anxiety * Sonata 10 mg po hs for insomnia on 03/17/16 * No new weekend labs thus far * Vitals reviewed and noted below: 03/16/17 03/16/17 03/16/17 07:26 08:11 08:12 Temperature 97.7 F Pulse Rate 99 H 99 H Respiratory 21 Rate Blood Pressure 149/106 H 149/106 H 149/106 H 03/16/17 03/17/17 03/17/17 16:30 07:00 08:25 Temperature 97.6 F 97.8 F Pulse Rate 81 90 90 Respiratory 16 20 Rate Blood Pressure 99/68 L 156/103 H 156/103 H 03/17/17 03/17/17 08:26 08:27 Temperature Pulse Rate 90 Respiratory Rate Blood Pressure 153/103 H 156/103 H Estimated Date of D/C: 03/19/17 (we'll monitor closely)
[2017-03-19] MEDS: Metoprolol Succinate 50 mg XL Tab PO SCH (07:47)
[2017-03-19] MEDS: Pantoprazole 40 mg EC Tab PO SCH (08:25)
--- NOTE | 2017-03-19 17:24 | PCM.PYCHPN ---
Psychiatric Progress Note - Psychiatric Progress Note Patient seen today, length of contact: 30 minutes Patient Chief Complaint: "I am very anxious" Problems Identified/Issues Discussed: Suicide/ homicide prevention, past psychiatric h/o, current psychiatric symptoms , medical problems, risk/benefits and alternatives of medications, medications compliance, coping strategies, substance abuse h/o, relapse prevention, importance of follow up with psychiatrist and therapist, discharge plan. Medical Problems: see HPI fibromyalgia Diagnostic Results: 03/14/17 06:30 03/14/17 06:30 Lab Results 03/14/17 16:37: POC Glucose (mg/dL) 104 03/14/17 11:26: POC Glucose (mg/dL) 71 03/14/17 07:06: POC Glucose (mg/dL) 133 H 03/14/17 06:30: Sodium 145, Potassium 4.2, Chloride 103, Carbon Dioxide 29, Anion Gap 17, BUN 11, Creatinine 0.7, Est GFR ( Amer) > 60, Est GFR (Non- Af Amer) > 60, Random Glucose 126 H, Calcium 10.0, Total Bilirubin 0.5, AST 33, ALT 25, Alkaline Phosphatase 112, Total Protein 8.2, Albumin 4.8, Globulin 3.4, Albumin/Globulin Ratio 1.4 03/14/17 06:30: WBC 6.9, RBC 4.53, Hgb 13.6, Hct 40.2, MCV 88.7, MCH 30.0, MCHC 33.8, RDW 14.0, Plt Count 244, MPV 9.2 03/14/17 06:30: RPR Nonreactive 03/14/17 06:30: Free T4 1.13, TSH 3rd Generation 1.73 03/14/17 06:30: Fasting Glucose 126 H, Triglycerides 57, Cholesterol 196, LDL Cholesterol Direct 84, HDL Cholesterol 77 H 03/13/17 21:50: POC Glucose (mg/dL) 97 03/13/17 16:12: POC Glucose (mg/dL) 96 03/13/17 11:29: POC Glucose (mg/dL) 129 H Vital Signs Temp Pulse Resp BP Pulse Ox 03/14/17 09:33 100 H 150/105 H 03/14/17 09:31 100 H 152/105 H 03/14/17 07:18 98.6 F 100 H 20 03/13/17 16:36 153/103 H 03/13/17 16:00 88 157/103 H 03/13/17 09:48 16 03/13/17 06:51 97.7 F 80 19 125/81 03/13/17 05:34 98.8 F 82 19 143/82 99 Temp Pulse Resp BP Pulse Ox 97.7 F 82 20 138/99 H 99 03/15/17 07:17 03/15/17 09:36 03/15/17 07:17 03/15/17 09:36 03/13/17 05:34 DSM 5 Symptoms Update: shortly patient is 57 year old female from the [place] was transferred from [facility] where she was brought in by EMS for evaluation of worsening of depression and suicidal ideation with no intent or plan to kill herself (pt called 911 herself), worsening of anxiety for the past four days, pt was not able to contract for safety, was on multiple psychotropic medications, needs further evaluation and stabilization and meds adjustment. Patient was seen at the treatment team meeting, patient presented to be anxious , patient reported that last week she was feeling better but right now anxiety is coming back, patient was repeating herself that "I cannot live like that I want my life back". Patient denied any thoughts of killing herself or others but reported that it is impossible to live feeling this anxious. Cymbalta was maximized 120mg po daily for depression/anxiety/fibromyalgia. pt has transient feeling of hopelessness, but denied thoughts of harming self or others. as per staff pt started to go to the groups, started to socialize with other patients more. no manic symptoms elicited no side effects were observed or reported, aims 0, no EPS. DSM 5 Diagnosis: as per history major depressive disorder, severe, no psychosis Generalized anxiety disorder Fibromyalgia Medication Change: Yes (Ativan increased) Medical Record Reviewed: Yes Consults ordered or reviewed: medical consult appreciated Mental Status Examination - Cognitive Function Orientation: Person, Place, Situation Memory: Intact Attention: WNL (impriving) Concentration: Poor (improving) Association: Loose (improving) Fund of Knowledge: Poor - Mood Mood: Depressed ("I feel little bit better today"), Anxious ("I feel very anxious, it is impossible to live feeling this way..") - Affect Affect: Constricted (and tearful), Flat - Speech Speech: Appropriate - Formal Thought Process Formal Thought Process: No Impairment - Suicidal Ideation Suicidal Ideation: No - Homicidal Ideation Homicidal Ideation: No Goal/Treatment Plan - Goal/Treatment Plan Need for Continued Stay: Remain at risks for inpatient hospitalization, Severe depression anxiety, Discharge may exacerbated symptoms, Severe functional impairment Progress Toward Problem(s) and Goals/Treatment Plan: Milieu/structure/supportive therapy Medical consult appreciated, see medical team note for more detailed info consultation for discharge plan and social issues Med management Cymbalta 60 mg twice a day for mdd, anxiety, fibromyalgia Nortriptyline was discontinued, patient tolerated that well Ativan 2mg po bid and hs for anxiety Remeron 30 mg at the nighttime for depression and insomnia sonata 10mg po hs for insomnia pt was started on namenda by medical team Medical consultation appreciated Family involvement Follow up on labs Will monitor closely evaluation for d/c planning Pt was educated about risk/benefits and alternatives of medications, coping strategies (safety plan, suicide prevention), relapse prevention, importance of follow up with psychiatrist and therapist, stay away from drugs/alcohol/smoking Estimated Date of D/C: 03/23/17 (we'll monitor closely)
[2017-03-20] MEDS: Metoprolol Succinate 50 mg XL Tab PO SCH (08:47)
[2017-03-20] MEDS: Pantoprazole 40 mg EC Tab PO SCH (08:48)
--- NOTE | 2017-03-20 16:32 | PCM.PYCHPN ---
Psychiatric Progress Note - Psychiatric Progress Note Patient seen today, length of contact: 30 minutes Patient Chief Complaint: "I feel better today" Problems Identified/Issues Discussed: Suicide/ homicide prevention, past psychiatric h/o, current psychiatric symptoms , medical problems, risk/benefits and alternatives of medications, medications compliance, coping strategies, substance abuse h/o, relapse prevention, importance of follow up with psychiatrist and therapist, discharge plan. Medical Problems: see HPI fibromyalgia Diagnostic Results: 03/14/17 06:30 03/14/17 06:30 Lab Results 03/14/17 16:37: POC Glucose (mg/dL) 104 03/14/17 11:26: POC Glucose (mg/dL) 71 03/14/17 07:06: POC Glucose (mg/dL) 133 H 03/14/17 06:30: Sodium 145, Potassium 4.2, Chloride 103, Carbon Dioxide 29, Anion Gap 17, BUN 11, Creatinine 0.7, Est GFR ( Amer) > 60, Est GFR (Non- Af Amer) > 60, Random Glucose 126 H, Calcium 10.0, Total Bilirubin 0.5, AST 33, ALT 25, Alkaline Phosphatase 112, Total Protein 8.2, Albumin 4.8, Globulin 3.4, Albumin/Globulin Ratio 1.4 03/14/17 06:30: WBC 6.9, RBC 4.53, Hgb 13.6, Hct 40.2, MCV 88.7, MCH 30.0, MCHC 33.8, RDW 14.0, Plt Count 244, MPV 9.2 03/14/17 06:30: RPR Nonreactive 03/14/17 06:30: Free T4 1.13, TSH 3rd Generation 1.73 03/14/17 06:30: Fasting Glucose 126 H, Triglycerides 57, Cholesterol 196, LDL Cholesterol Direct 84, HDL Cholesterol 77 H 03/13/17 21:50: POC Glucose (mg/dL) 97 03/13/17 16:12: POC Glucose (mg/dL) 96 03/13/17 11:29: POC Glucose (mg/dL) 129 H Vital Signs Temp Pulse Resp BP Pulse Ox 03/14/17 09:33 100 H 150/105 H 03/14/17 09:31 100 H 152/105 H 03/14/17 07:18 98.6 F 100 H 20 03/13/17 16:36 153/103 H 03/13/17 16:00 88 157/103 H 03/13/17 09:48 16 03/13/17 06:51 97.7 F 80 19 125/81 03/13/17 05:34 98.8 F 82 19 143/82 99 Temp Pulse Resp BP Pulse Ox 97.7 F 82 20 138/99 H 99 03/15/17 07:17 03/15/17 09:36 03/15/17 07:17 03/15/17 09:36 03/13/17 05:34 DSM 5 Symptoms Update: shortly patient is 57 year old female from the [place] was transferred from [facility] where she was brought in by EMS for evaluation of worsening of depression and suicidal ideation with no intent or plan to kill herself (pt called 911 herself), worsening of anxiety for the past four days, pt was not able to contract for safety, was on multiple psychotropic medications, needs further evaluation and stabilization and meds adjustment. Patient was seen next to the nursing station, pt obviously has brighter affect, reported that she feels less anxious. pt reported that she feels little better today, denied any toughs of harming self others. Cymbalta was maximized 120mg po daily for depression/anxiety/fibromyalgia. pt has transient feeling of hopelessness as per staff pt started to go to the groups, started to socialize with other patients more. no manic symptoms elicited no side effects were observed or reported, aims 0, no EPS. DSM 5 Diagnosis: as per history major depressive disorder, severe, no psychosis Generalized anxiety disorder Fibromyalgia Medication Change: No (ativan was increased yesterday) Medical Record Reviewed: Yes Consults ordered or reviewed: medical consult appreciated Mental Status Examination - Cognitive Function Orientation: Person, Place, Situation Memory: Intact Attention: WNL (impriving) Concentration: Poor (improving) Association: Loose (improving) Fund of Knowledge: Poor - Mood Mood: Depressed ("I feel little bit better today"), Anxious ("I feel very anxious, it is impossible to live feeling this way..") - Affect Affect: Constricted (and tearful), Flat - Speech Speech: Appropriate - Formal Thought Process Formal Thought Process: No Impairment - Suicidal Ideation Suicidal Ideation: No - Homicidal Ideation Homicidal Ideation: No Goal/Treatment Plan - Goal/Treatment Plan Need for Continued Stay: Remain at risks for inpatient hospitalization, Severe depression anxiety, Discharge may exacerbated symptoms, Severe functional impairment Progress Toward Problem(s) and Goals/Treatment Plan: Milieu/structure/supportive therapy Medical consult appreciated, see medical team note for more detailed info consultation for discharge plan and social issues Med management Cymbalta 60 mg twice a day for mdd, anxiety, fibromyalgia Nortriptyline was discontinued, patient tolerated that well Ativan 2mg po bid and hs for anxiety Remeron 30 mg at the nighttime for depression and insomnia sonata 10mg po hs for insomnia pt was started on namenda by medical team Medical consultation appreciated Family involvement Follow up on labs Will monitor closely evaluation for d/c planning Pt was educated about risk/benefits and alternatives of medications, coping strategies (safety plan, suicide prevention), relapse prevention, importance of follow up with psychiatrist and therapist, stay away from drugs/alcohol/smoking Estimated Date of D/C: 03/23/17 (we'll monitor closely)
[2017-03-21] MEDS: Pantoprazole 40 mg EC Tab PO SCH (09:46)
[2017-03-21] MEDS: Metoprolol Succinate 50 mg XL Tab PO SCH (09:46)
--- NOTE | 2017-03-21 16:25 | PCM.BM ---
<Troy Ngo - Last Filed: 03/21/17 16:25> Treatment Plan Problems - Problems identified on initial assessmt hopeless/helpless Date Initiated: 03/14/17 Time Initiated: 13:00 Assessment reference: NA Status: Active Priority: 1 ineffective coping Date Initiated: 03/14/17 Time Initiated: 13:00 Assessment reference: NA Status: Active Priority: 2 anxiety Date Initiated: 03/14/17 Time Initiated: 13:00 Assessment reference: NA Status: Active Priority: 3 Treatment assets and liabiliti Patient Assests: ADL independent, negotiates basic needs, cognitively intact Patient Liabilities: live alone, poor support system, language/speech - Milieu Protocol Maintain good personal hygiene: daily Encourage regular showers, daily Remind patient to perform daily oral care Maintain personal safety: every shift Educate patient to report safety concerns to staff, every shift Monitor environment for contraband/sharps Medication safety: Monitor for expected outcome, potential side effects: every shift, Assess barriers to learning: every shift, Assess readiness for medication education: every shift Milieu Narrative: Milieu/structure/supportive therapy Medical consult appreciated, see medical team note for more detailed info consultation for discharge plan and social issues Med management Cymbalta 60 mg twice a day for mdd, anxiety, fibromyalgia Nortriptyline was discontinued, patient tolerated that well Ativan 2mg po bid and hs for anxiety Remeron 30 mg at the nighttime for depression and insomnia sonata 10mg po hs for insomnia pt was started on namenda by medical team Medical consultation appreciated Family involvement Follow up on labs Will monitor closely SW evaluation for d/c planning Pt was educated about risk/benefits and alternatives of medications, coping strategies (safety plan, suicide prevention), relapse prevention, importance of follow up with psychiatrist and therapist, stay away from drugs/alcohol/smoking Family Contact Family contact: Patient agrees to contact Family contact name: Swetha Castillo(daughter) Family contacted how many times per week?: 2 - Outside Agency [facility] Care involvment: Not involved Discharge/Continuing Care - Education Needs Education Needs: Patient Medication, Patient Diagnosis/Disease Process, Patient Coping Skills, Patient Community resources, Patient Activities of Daily Living, Patient Nutrition, Patient Health Practices/Safety, Patient Aftercare Safety Plan - Discharge Discharge Criteria: Tolerates medication w/o severe side effects, Free of Suicidal thoughts, Normal sleep pattern, Ability to care for self, Reduction of target symptoms Discharge to:: Home - Treatment Team Participation Patient/Family/SO Statement: Milieu/structure/supportive therapy Medical consult appreciated, see medical team note for more detailed info consultation for discharge plan and social issues Med management Cymbalta 60 mg twice a day for mdd, anxiety, fibromyalgia Nortriptyline was discontinued, patient tolerated that well Ativan 2mg po bid and hs for anxiety Remeron 30 mg at the nighttime for depression and insomnia sonata 10mg po hs for insomnia pt was started on namenda by medical team Medical consultation appreciated Family involvement Follow up on labs Will monitor closely evaluation for d/c planning Pt was educated about risk/benefits and alternatives of medications, coping strategies (safety plan, suicide prevention), relapse prevention, importance of follow up with psychiatrist and therapist, stay away from drugs/alcohol/smoking Treatment Plan Review - Problem hopeless/helpless Time Initiated: 13:00 ineffective coping Time Initiated: 13:00 anxiety Time Initiated: 13:00 <Rayne Glez - Last Filed: 03/21/17 16:27> - Diagnosis (1) MALIA (generalized anxiety disorder) Status: Acute Interventions: 03/21/17 16:27 anxiety is the same med management adjustment of meds relaxation techniques breathing exercises (2) Depression Status: Acute Interventions: 03/21/17 16:28 depression is better depression is related to her anxiety pt is not suicidal or homicidal supportive therapy <Eunice Cabrera - Last Filed: 03/23/17 17:31>
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
[2017-03-22] MEDS: Metoprolol Succinate 50 mg XL Tab PO SCH (09:30)
[2017-03-22] MEDS: Pantoprazole 40 mg EC Tab PO SCH (09:32)
--- NOTE | 2017-03-22 16:18 | PCM.PYCHPN ---
Psychiatric Progress Note - Psychiatric Progress Note Patient seen today, length of contact: 30 minutes Patient Chief Complaint: "I am so anxious, I want to .." Problems Identified/Issues Discussed: Suicide/ homicide prevention, past psychiatric h/o, current psychiatric symptoms , medical problems, risk/benefits and alternatives of medications, medications compliance, coping strategies, substance abuse h/o, relapse prevention, importance of follow up with psychiatrist and therapist, discharge plan. Medical Problems: see HPI fibromyalgia Diagnostic Results: 03/14/17 06:30 03/14/17 06:30 Lab Results 03/14/17 16:37: POC Glucose (mg/dL) 104 03/14/17 11:26: POC Glucose (mg/dL) 71 03/14/17 07:06: POC Glucose (mg/dL) 133 H 03/14/17 06:30: Sodium 145, Potassium 4.2, Chloride 103, Carbon Dioxide 29, Anion Gap 17, BUN 11, Creatinine 0.7, Est GFR ( Amer) > 60, Est GFR (Non- Af Amer) > 60, Random Glucose 126 H, Calcium 10.0, Total Bilirubin 0.5, AST 33, ALT 25, Alkaline Phosphatase 112, Total Protein 8.2, Albumin 4.8, Globulin 3.4, Albumin/Globulin Ratio 1.4 03/14/17 06:30: WBC 6.9, RBC 4.53, Hgb 13.6, Hct 40.2, MCV 88.7, MCH 30.0, MCHC 33.8, RDW 14.0, Plt Count 244, MPV 9.2 03/14/17 06:30: RPR Nonreactive 03/14/17 06:30: Free T4 1.13, TSH 3rd Generation 1.73 03/14/17 06:30: Fasting Glucose 126 H, Triglycerides 57, Cholesterol 196, LDL Cholesterol Direct 84, HDL Cholesterol 77 H 03/13/17 21:50: POC Glucose (mg/dL) 97 03/13/17 16:12: POC Glucose (mg/dL) 96 03/13/17 11:29: POC Glucose (mg/dL) 129 H Vital Signs Temp Pulse Resp BP Pulse Ox 03/14/17 09:33 100 H 150/105 H 03/14/17 09:31 100 H 152/105 H 03/14/17 07:18 98.6 F 100 H 20 03/13/17 16:36 153/103 H 03/13/17 16:00 88 157/103 H 03/13/17 09:48 16 03/13/17 06:51 97.7 F 80 19 125/81 03/13/17 05:34 98.8 F 82 19 143/82 99 Temp Pulse Resp BP Pulse Ox 97.7 F 82 20 138/99 H 99 03/15/17 07:17 03/15/17 09:36 03/15/17 07:17 03/15/17 09:36 03/13/17 05:34 DSM 5 Symptoms Update: shortly patient is 57 year old female from the [place] was transferred from [facility] where she was brought in by EMS for evaluation of worsening of depression and suicidal ideation with no intent or plan to kill herself (pt called 911 herself), worsening of anxiety for the past four days, pt was not able to contract for safety, was on multiple psychotropic medications, needs further evaluation and stabilization and meds adjustment. Patient was seen at the [facility] area with medical student, [email or web address] [email or web address] [id number] pt said she feels more anxious and "I am so anxious I want to end up my life", then pt said "I was feeling happy yesterday", of note pt was crying yesterday, saying that she cannot tolerate her anxiety, but today pt said yesterday she was "happy", pt wants to go back on Ativan. pt adamantly denied thoughts of harming self or others, denied intent or plan, when was asked about her above statement that she wants to end up her life, pt said "I said it because I don't feel good..." Cymbalta was maximized 120mg po daily for depression/anxiety/fibromyalgia. pt has transient feeling of hopelessness as per staff pt started to go to the groups, started to socialize with other patients more, but today is very anxious. no manic symptoms elicited no side effects were observed or reported, aims 0, no EPS. DSM 5 Diagnosis: as per history major depressive disorder, severe, no psychosis Generalized anxiety disorder Fibromyalgia Medication Change: Yes (klonopin, buspar, started, ativan d/c) Medical Record Reviewed: Yes Mental Status Examination - Cognitive Function Orientation: Person, Place, Situation Memory: Intact Attention: WNL (impriving) Concentration: Poor Association: Loose Fund of Knowledge: Poor - Mood Mood: Depressed ("I want to , I feel very anxious"), Anxious ("I feel very anxious, it is impossible to live feeling this way..") - Affect Affect: Constricted (and tearful), Flat - Speech Speech: Appropriate - Formal Thought Process Formal Thought Process: No Impairment - Suicidal Ideation Suicidal Ideation: No - Homicidal Ideation Homicidal Ideation: No Goal/Treatment Plan - Goal/Treatment Plan Need for Continued Stay: Remain at risks for inpatient hospitalization, Severe depression anxiety, Discharge may exacerbated symptoms, Severe functional impairment Progress Toward Problem(s) and Goals/Treatment Plan: Milieu/structure/supportive therapy Medical consult appreciated, see medical team note for more detailed info consultation for discharge plan and social issues Med management Cymbalta 60 mg twice a day for mdd, anxiety, fibromyalgia ativan will be resumed 2mg po tid for anxiety buspar 5mg po bid for anxiety Remeron 30 mg at the nighttime for depression and insomnia sonata 10mg po hs for insomnia pt was started on namenda by medical team Medical consultation appreciated Family involvement Follow up on labs Will monitor closely evaluation for d/c planning Pt was educated about risk/benefits and alternatives of medications, coping strategies (safety plan, suicide prevention), relapse prevention, importance of follow up with psychiatrist and therapist, stay away from drugs/alcohol/smoking Estimated Date of D/C: 03/26/17 (we'll monitor closely)
--- NOTE | 2017-03-22 18:31 | PCM.FALL ---
Post Fall Progress Note - Post Fall Fall Date: 03/22/17 Fall Time: 18:08 Description of Fall: suspected syncopal, but able to partially lower herself to the floor as per nursing - Post Fall Exam Vital Sign: Temp Pulse Resp BP Pulse Ox 98.4 F 112 H 20 134/65 99 03/22/17 07:13 03/22/17 16:30 03/22/17 07:13 03/22/17 16:30 03/13/17 05:34 Skull Exam: Negative for: Scalp wound, Scalp hematoma Eye Exam: Positive for: Pupils equal Ear Exam: Negative for: Bleeding Nose Exam: Negative for: Bleeding Skin Exam: Positive for: Colour (normal). Negative for: Lacerations Mouth Exam: Negative for: Tongue bitten, Teeth dislodge Neck Exam: Negative for: Weakness Spinal Exam: Negative for: Weakness Chest Exam: Negative for: Difficulty breathing Abdomen Exam: Negative for: Tenderness Pelvic Exam: Negative for: Tenderness Arm Exam: Negative for: Deformity Leg Exam: Negative for: Deformity Other pertinent findings: slow but steady gait, no gross neuro or physiologic deficits observed Impression/Plan: Appears to be syncopal/near-syncopal episode, likely due to orthostatics with possible vasovagal component. As per nursing, patient called over from seated position to get meds, walked over, then began drooping to floor. No head trauma. On floor, SBP 140's, recheck while sitting SBP 110's, recheck on standing 120's. Patient reports last memory was finishing urinating in the bathroom, then walking over to the chair and sitting in it. Does not remember getting called for medications, does not remember falling to floor. Able to stand with assistance, walked back to room because complains of needing to urinate again. Not grossly in pain, no estefania trauma evident. Given lack of head trauma and appropriate gait (slow but stable), no need for imaging at this time. Patient assisted to bathroom, encouraged bedrest and PO fluid intake. Psych attending aware, present in unit at time of episode.
[2017-03-23] MEDS: Metoprolol Succinate 50 mg XL Tab PO SCH (08:25)
[2017-03-23] MEDS: Pantoprazole 40 mg EC Tab PO SCH (08:26)
--- NOTE | 2017-03-23 17:02 | PCM.PYCHPN ---
Psychiatric Progress Note - Psychiatric Progress Note Patient seen today, length of contact: 30 minutes Patient Chief Complaint: "I am better today" Problems Identified/Issues Discussed: Suicide/ homicide prevention, past psychiatric h/o, current psychiatric symptoms , medical problems, risk/benefits and alternatives of medications, medications compliance, coping strategies, substance abuse h/o, relapse prevention, importance of follow up with psychiatrist and therapist, discharge plan. Medical Problems: see HPI fibromyalgia Diagnostic Results: 03/14/17 06:30 03/14/17 06:30 Lab Results 03/14/17 16:37: POC Glucose (mg/dL) 104 03/14/17 11:26: POC Glucose (mg/dL) 71 03/14/17 07:06: POC Glucose (mg/dL) 133 H 03/14/17 06:30: Sodium 145, Potassium 4.2, Chloride 103, Carbon Dioxide 29, Anion Gap 17, BUN 11, Creatinine 0.7, Est GFR ( Amer) > 60, Est GFR (Non- Af Amer) > 60, Random Glucose 126 H, Calcium 10.0, Total Bilirubin 0.5, AST 33, ALT 25, Alkaline Phosphatase 112, Total Protein 8.2, Albumin 4.8, Globulin 3.4, Albumin/Globulin Ratio 1.4 03/14/17 06:30: WBC 6.9, RBC 4.53, Hgb 13.6, Hct 40.2, MCV 88.7, MCH 30.0, MCHC 33.8, RDW 14.0, Plt Count 244, MPV 9.2 03/14/17 06:30: RPR Nonreactive 03/14/17 06:30: Free T4 1.13, TSH 3rd Generation 1.73 03/14/17 06:30: Fasting Glucose 126 H, Triglycerides 57, Cholesterol 196, LDL Cholesterol Direct 84, HDL Cholesterol 77 H 03/13/17 21:50: POC Glucose (mg/dL) 97 03/13/17 16:12: POC Glucose (mg/dL) 96 03/13/17 11:29: POC Glucose (mg/dL) 129 H Vital Signs Temp Pulse Resp BP Pulse Ox 03/14/17 09:33 100 H 150/105 H 03/14/17 09:31 100 H 152/105 H 03/14/17 07:18 98.6 F 100 H 20 03/13/17 16:36 153/103 H 03/13/17 16:00 88 157/103 H 03/13/17 09:48 16 03/13/17 06:51 97.7 F 80 19 125/81 03/13/17 05:34 98.8 F 82 19 143/82 99 Temp Pulse Resp BP Pulse Ox 97.7 F 82 20 138/99 H 99 03/15/17 07:17 03/15/17 09:36 03/15/17 07:17 03/15/17 09:36 03/13/17 05:34 Vital Signs (72 hours) 03/21/17 03/21/17 03/22/17 07:34 09:46 07:13 Temperature 98.5 F 98.4 F Pulse Rate 99 H 102 H Respiratory 20 20 Rate Blood Pressure 148/94 H 148/94 H 158/98 H 03/22/17 03/22/17 03/22/17 09:30 16:30 18:15 Temperature Pulse Rate 102 H 112 H 85 Respiratory Rate Blood Pressure 158/98 H 134/65 148/98 H 03/22/17 03/23/17 03/23/17 18:30 08:24 08:25 Temperature Pulse Rate 85 102 H 102 H Respiratory Rate Blood Pressure 118/76 142/91 H 142/91 H 03/23/17 08:30 Temperature Pulse Rate Respiratory Rate Blood Pressure 142/91 H DSM 5 Symptoms Update: shortly patient is 57 year old female from the [place] was transferred from [facility] where she was brought in by EMS for evaluation of worsening of depression and suicidal ideation with no intent or plan to kill herself (pt called 911 herself), worsening of anxiety for the past four days, pt was not able to contract for safety, was on multiple psychotropic medications, needs further evaluation and stabilization and meds adjustment. Patient was seen next to the nursing station with medical student. yesterday pt had syncopal episode, meds adjusted, medical team saw pt. pt said today she feels "little better", anxiety is improving. pt has tendency of asking to change medications, then asking to be switch to the previous set of meds will continue on current meds as of now. Cymbalta 120mg po daily for depression/anxiety/fibromyalgia. ativan resumed. buspar added pt has transient feeling of hopelessness as per staff pt started to go to the groups, started to socialize with other patients more, but today is very anxious. no manic symptoms elicited no side effects were observed or reported, aims 0, no EPS. DSM 5 Diagnosis: as per history major depressive disorder, severe, no psychosis Generalized anxiety disorder Fibromyalgia Medication Change: Yes (buspar increased) Medical Record Reviewed: Yes Consults ordered or reviewed: medical consult appreciated Mental Status Examination - Cognitive Function Orientation: Person, Place, Situation Memory: Intact Attention: WNL (impriving) Concentration: Poor Association: Loose Fund of Knowledge: Poor - Mood Mood: Depressed ("I want to , I feel very anxious"), Anxious ("I feel very anxious, it is impossible to live feeling this way..") - Affect Affect: Constricted (and tearful), Flat - Speech Speech: Appropriate - Formal Thought Process Formal Thought Process: No Impairment - Suicidal Ideation Suicidal Ideation: No - Homicidal Ideation Homicidal Ideation: No Goal/Treatment Plan - Goal/Treatment Plan Need for Continued Stay: Remain at risks for inpatient hospitalization, Severe depression anxiety, Discharge may exacerbated symptoms, Severe functional impairment Progress Toward Problem(s) and Goals/Treatment Plan: Milieu/structure/supportive therapy Medical consult appreciated, see medical team note for more detailed info consultation for discharge plan and social issues Med management Cymbalta 60 mg twice a day for mdd, anxiety, fibromyalgia ativan resumed 2mg po tid for anxiety buspar 5mg po tid for anxiety Remeron 30 mg at the nighttime for depression and insomnia sonata 10mg po hs for insomnia pt was started on namenda by medical team Medical consultation appreciated Family involvement Follow up on labs Will monitor closely evaluation for d/c planning Pt was educated about risk/benefits and alternatives of medications, coping strategies (safety plan, suicide prevention), relapse prevention, importance of follow up with psychiatrist and therapist, stay away from drugs/alcohol/smoking Estimated Date of D/C: 03/26/17 (we'll monitor closely)
[2017-03-24] MEDS: Pantoprazole 40 mg EC Tab PO SCH (08:59)
[2017-03-24] MEDS: Metoprolol Succinate 50 mg XL Tab PO SCH (09:00)
--- NOTE | 2017-03-24 09:34 | PCM.PYCHPN ---
Psychiatric Progress Note - Psychiatric Progress Note Patient seen today, length of contact: 25 minutes Patient Chief Complaint: less depressed and more hopeful Problems Identified/Issues Discussed: I reviewed recent notes and met with patient at bedside. She is cooperative and oriented to circumstances. Patient reports that she is feeling less depressed and more hopeful. Anxiety persists but improved since last weekend. She doesn't want to or harm herself. Thought process is more goal directed and focused. She appears less overwhelmed and in better control of her emotions. Patient is tolerating her medications and denies side effects or any new discomfort or pain. Staff notes indicate that patient has been pleasant, and compliant with medications. Visible and attending groups. There were no major behavioral issues over the weekend thus far. Diagnostic Results: as per history Major depressive disorder, severe, no psychosis Generalized anxiety disorder Fibromyalgia Medication Change: Yes (buspar increased) Medical Record Reviewed: Yes Mental Status Examination - Cognitive Function Orientation: Person, Place, Situation Memory: Intact Attention: WNL (impriving) Concentration: Poor Association: Loose Fund of Knowledge: Poor - Mood Mood: Depressed ( less depressed and more hopeful), Anxious (improving) - Affect Affect: Constricted (in better control, less emotional but still with limited range), Flat - Speech Speech: Appropriate - Formal Thought Process Formal Thought Process: No Impairment - Suicidal Ideation Suicidal Ideation: No - Homicidal Ideation Homicidal Ideation: No Goal/Treatment Plan - Goal/Treatment Plan Need for Continued Stay: Remain at risks for inpatient hospitalization, Severe depression anxiety, Discharge may exacerbated symptoms, Severe functional impairment Progress Toward Problem(s) and Goals/Treatment Plan: * c/w current tx and plan * Remeron 30 mg HS for depression * Cymbalta 60 mg po bid for depression * Ativan 2 mg po TID for anxiety * Sonata 10 mg po hs for insomnia * No new weekend labs thus far * Vitals reviewed and noted below: 03/22/17 03/22/17 03/23/17 18:15 18:30 08:24 Pulse Rate 85 85 102 H Blood Pressure 148/98 H 118/76 142/91 H 03/23/17 03/23/17 08:25 08:30 Pulse Rate 102 H Blood Pressure 142/91 H 142/91 H Estimated Date of D/C: 03/26/17 (we'll monitor closely)
[2017-03-25] MEDS: Metoprolol Succinate 50 mg XL Tab PO SCH (08:29)
[2017-03-25] MEDS: Pantoprazole 40 mg EC Tab PO SCH (08:31)
--- NOTE | 2017-03-25 09:11 | PCM.PYCHPN ---
Psychiatric Progress Note - Psychiatric Progress Note Patient seen today, length of contact: 25 minutes Patient Chief Complaint: less depressed and more hopeful Problems Identified/Issues Discussed: I reviewed recent notes and met with patient at bedside. She is cooperative and oriented to circumstances. Patient reports that she is feeling better and has been sleeping well. She is more hopeful. Anxiety persists but definitely improved since last weekend. She doesn't want to or harm herself. Her affect is brighter and more reactive. She smiles during our interview this morning. Thought process is goal directed and focused. Patient is tolerating her medications and denies side effects or any new discomfort or pain. Staff notes indicate that patient has been pleasant and compliant with medications. Appears brighter. She is visible and attending groups. There were no major behavioral issues over the weekend thus far. Diagnostic Results: as per history Major depressive disorder, severe, no psychosis Generalized anxiety disorder Fibromyalgia Medication Change: No ( ) Medical Record Reviewed: Yes Mental Status Examination - Cognitive Function Orientation: Person, Place, Situation Memory: Intact Attention: WNL (impriving) Concentration: Poor Association: Loose Fund of Knowledge: Poor - Mood Mood: Depressed ( less depressed and more hopeful), Anxious (improving) - Affect Affect: Constricted (in better control, brighter, smiles today), Flat - Speech Speech: Appropriate - Formal Thought Process Formal Thought Process: No Impairment - Suicidal Ideation Suicidal Ideation: No - Homicidal Ideation Homicidal Ideation: No Goal/Treatment Plan - Goal/Treatment Plan Need for Continued Stay: Remain at risks for inpatient hospitalization, Severe depression anxiety, Discharge may exacerbated symptoms, Severe functional impairment Progress Toward Problem(s) and Goals/Treatment Plan: * c/w current tx and plan * Remeron 30 mg HS for depression * Cymbalta 60 mg po bid for depression * Ativan 2 mg po TID for anxiety * Sonata 10 mg po hs for insomnia * No new weekend labs thus far * Vitals reviewed and noted below: 03/23/17 03/23/17 03/24/17 08:25 08:30 08:00 Pulse Rate 102 H 109 H Blood Pressure 142/91 H 142/91 H 141/90 03/24/17 09:00 Pulse Rate 109 H Blood Pressure 141/90 Estimated Date of D/C: 03/26/17 (we'll monitor closely)
[2017-03-26 07:01] VITALS: TEMP 97.9
[2017-03-26] MEDS: Pantoprazole 40 mg EC Tab PO SCH (08:44)
[2017-03-26] MEDS: Metoprolol Succinate 50 mg XL Tab PO SCH (08:45)
--- NOTE | 2017-03-26 14:56 | PCM.PYCHPN ---
Psychiatric Progress Note - Psychiatric Progress Note Patient seen today, length of contact: 30min Patient Chief Complaint: "I am better today" Problems Identified/Issues Discussed: Suicide/ homicide prevention, past psychiatric h/o, current psychiatric symptoms , medical problems, risk/benefits and alternatives of medications, medications compliance, coping strategies, substance abuse h/o, relapse prevention, importance of follow up with psychiatrist and therapist, discharge plan. Medical Problems: see HPI fibromyalgia Diagnostic Results: 03/14/17 06:30 03/14/17 06:30 Lab Results 03/14/17 16:37: POC Glucose (mg/dL) 104 03/14/17 11:26: POC Glucose (mg/dL) 71 03/14/17 07:06: POC Glucose (mg/dL) 133 H 03/14/17 06:30: Sodium 145, Potassium 4.2, Chloride 103, Carbon Dioxide 29, Anion Gap 17, BUN 11, Creatinine 0.7, Est GFR ( Amer) > 60, Est GFR (Non- Af Amer) > 60, Random Glucose 126 H, Calcium 10.0, Total Bilirubin 0.5, AST 33, ALT 25, Alkaline Phosphatase 112, Total Protein 8.2, Albumin 4.8, Globulin 3.4, Albumin/Globulin Ratio 1.4 03/14/17 06:30: WBC 6.9, RBC 4.53, Hgb 13.6, Hct 40.2, MCV 88.7, MCH 30.0, MCHC 33.8, RDW 14.0, Plt Count 244, MPV 9.2 03/14/17 06:30: RPR Nonreactive 03/14/17 06:30: Free T4 1.13, TSH 3rd Generation 1.73 03/14/17 06:30: Fasting Glucose 126 H, Triglycerides 57, Cholesterol 196, LDL Cholesterol Direct 84, HDL Cholesterol 77 H 03/13/17 21:50: POC Glucose (mg/dL) 97 03/13/17 16:12: POC Glucose (mg/dL) 96 03/13/17 11:29: POC Glucose (mg/dL) 129 H Vital Signs Temp Pulse Resp BP Pulse Ox 03/14/17 09:33 100 H 150/105 H 03/14/17 09:31 100 H 152/105 H 03/14/17 07:18 98.6 F 100 H 20 03/13/17 16:36 153/103 H 03/13/17 16:00 88 157/103 H 03/13/17 09:48 16 03/13/17 06:51 97.7 F 80 19 125/81 03/13/17 05:34 98.8 F 82 19 143/82 99 Temp Pulse Resp BP Pulse Ox 97.7 F 82 20 138/99 H 99 03/15/17 07:17 03/15/17 09:36 03/15/17 07:17 03/15/17 09:36 03/13/17 05:34 Vital Signs (72 hours) 03/21/17 03/21/17 03/22/17 07:34 09:46 07:13 Temperature 98.5 F 98.4 F Pulse Rate 99 H 102 H Respiratory 20 20 Rate Blood Pressure 148/94 H 148/94 H 158/98 H 03/22/17 03/22/17 03/22/17 09:30 16:30 18:15 Temperature Pulse Rate 102 H 112 H 85 Respiratory Rate Blood Pressure 158/98 H 134/65 148/98 H 03/22/17 03/23/17 03/23/17 18:30 08:24 08:25 Temperature Pulse Rate 85 102 H 102 H Respiratory Rate Blood Pressure 118/76 142/91 H 142/91 H 03/23/17 08:30 Temperature Pulse Rate Respiratory Rate Blood Pressure 142/91 H DSM 5 Symptoms Update: shortly patient is 57 year old female from the [place] was transferred from [facility] where she was brought in by EMS for evaluation of worsening of depression and suicidal ideation with no intent or plan to kill herself (pt called 911 herself), worsening of anxiety for the past four days, pt was not able to contract for safety, was on multiple psychotropic medications, needs further evaluation and stabilization and meds adjustment. Patient was seen at TV area, pt presented much calmer, pt was educated about all of meds, pt was appreciative. pt is less anxious, agreed with d/c plan tomorrow. pt's mood is more reactive, denied thoughts of harming self or others. as per staff pt started to go to the groups, started to socialize with other patients more no manic symptoms elicited no side effects were observed or reported, aims 0, no EPS. DSM 5 Diagnosis: as per history major depressive disorder, severe, no psychosis Generalized anxiety disorder Fibromyalgia Medication Change: No ( ) Medical Record Reviewed: Yes Consults ordered or reviewed: medical consult appreciated Mental Status Examination - Cognitive Function Orientation: Person, Place, Situation Memory: Intact Attention: WNL (impriving) Concentration: WNL Association: WNL Fund of Knowledge: Poor - Mood Mood: Depressed ( less depressed and more hopeful), Anxious (improving) - Affect Affect: Constricted (in better control, brighter, smiles today), Flat - Speech Speech: Appropriate - Formal Thought Process Formal Thought Process: No Impairment - Suicidal Ideation Suicidal Ideation: No - Homicidal Ideation Homicidal Ideation: No Goal/Treatment Plan - Goal/Treatment Plan Need for Continued Stay: Remain at risks for inpatient hospitalization, Severe depression anxiety, Discharge may exacerbated symptoms, Severe functional impairment Progress Toward Problem(s) and Goals/Treatment Plan: Milieu/structure/supportive therapy Medical consult appreciated, see medical team note for more detailed info consultation for discharge plan and social issues Med management Cymbalta 60 mg twice a day for mdd, anxiety, fibromyalgia ativan resumed 2mg po tid for anxiety buspar 5mg po tid for anxiety Remeron 30 mg at the nighttime for depression and insomnia sonata 10mg po hs for insomnia pt was started on namenda by medical team Medical consultation appreciated Family involvement Follow up on labs Will monitor closely evaluation for d/c planning Pt was educated about risk/benefits and alternatives of medications, coping strategies (safety plan, suicide prevention), relapse prevention, importance of follow up with psychiatrist and therapist, stay away from drugs/alcohol/smoking Estimated Date of D/C: 03/27/17 (we'll monitor closely)
[2017-03-27] MEDS: Metoprolol Succinate 50 mg XL Tab PO SCH (09:27)
[2017-03-27] MEDS: Pantoprazole 40 mg EC Tab PO SCH (09:29)
[2017-03-27 09:33] VITALS: BP 137/86; PULSE 76
== END 2017-03-27 12:10 | disposition home or self-care (01) | DRG 430 ==
LOC: ED 05:08 → ERH 06:15 → PSYC 06:31
PROVIDERS: ADMIT Psychiatry & Neurology Psychiatry; ATTEND Psychiatry & Neurology Psychiatry
DX: F32.2 Major depressive disorder, single episode, severe without psychotic features (principal); F41.1 Generalized anxiety disorder; M79.7 Fibromyalgia; Z88.2 Allergy status to sulfonamides